=== PATIENT | female | born 1990 | race Caucasian/White ===

== ENCOUNTER 2016-06-04 10:31 | Outpatient (CLI) | payer OTHER | END 2016-06-04 11:41 | disposition home or self-care (01) | LOC: GENOP 10:31 | PROVIDERS: Obstetrics & Gynecology | DX: O42.92 Full-term premature rupture of membranes, unspecified as to length of time between rupture and onset of labor (principal); Z3A.37 37 weeks gestation of pregnancy | CPT/HCPCS: 80307; 81001; 83518; G0463 ==

== ENCOUNTER 2016-06-17 05:32 | Inpatient (IN) | payer OTHER ==
[~2016-06-17] VITALS: Ht 157.5 cm; Wt 60.8 kg
[2016-06-17 06:44] LABS: HEMOGLOBIN 10.9 gm/dl (12.3-15.3); RED BLOOD COUNT 3.72 M/UL (4.00-5.10); WHITE BLOOD COUNT 10.9 K/UL (4.5-11.0)
[2016-06-18 03:58] LABS: HEMOGLOBIN 10.3 gm/dl (12.3-15.3)
== END 2016-06-18 18:02 | disposition home or self-care (01) | DRG 775 ==
LOC: OB 05:32
PROVIDERS: ADMIT Obstetrics & Gynecology
PROC: 10E0XZZ Delivery of Products of Conception, External Approach (ICD-10-PCS; principal; 2016-06-17)
PROC: 10H07YZ Insertion of Other Device into Products of Conception, Via Natural or Artificial Opening (ICD-10-PCS; 2016-06-17)
PROC: 10H073Z Insertion of Monitoring Electrode into Products of Conception, Via Natural or Artificial Opening (ICD-10-PCS; 2016-06-17)
PROC: 10907ZC Drainage of Amniotic Fluid, Therapeutic from Products of Conception, Via Natural or Artificial Opening (ICD-10-PCS; 2016-06-17)
PROC: 3E033VJ Introduction of Other Hormone into Peripheral Vein, Percutaneous Approach (ICD-10-PCS; 2016-06-17)
PROC: 3E0234Z Introduction of Serum, Toxoid and Vaccine into Muscle, Percutaneous Approach (ICD-10-PCS; 2016-06-18)
DX: O99.334 Smoking (tobacco) complicating childbirth (principal); Z3A.39 39 weeks gestation of pregnancy; Z37.0 Single live birth; Z23 Encounter for immunization; Z79.899 Other long term (current) drug therapy
CPT/HCPCS: 36415; 81001; 82800; 85014; 85018; 85025; 90707; 90715; J2590; J3430; J7120

== ENCOUNTER 2020-10-06 11:41 | Emergency (ER) | payer OTHER ==
[2020-10-06 12:18] LABS: HEMOGLOBIN 13.6 gm/dl (12.3-15.3); RED BLOOD COUNT 4.47 M/UL (4.00-5.10); WHITE BLOOD COUNT 6.4 K/UL (4.5-11.0)
[2020-10-06 12:50] LABS: BUN/CREATININE RATIO 14 (0-10)
[2020-10-06] MEDS ORDERED: VISTARIL 50 MG50 MG PO (15:27)
== END 2020-10-06 15:43 | disposition home or self-care (01) ==
LOC: ER1 11:41
PROVIDERS: Emergency Medicine
DX: R06.00 Dyspnea, unspecified (principal); R00.2 Palpitations; J45.909 Unspecified asthma, uncomplicated
CPT/HCPCS: 71045; 80053; 82550; 82553; 83874; 84439; 84443; 84484; 85025; 85379; 93005; 99285; Q0177